=== PATIENT | female | born 1985 | race Caucasian/White ===

== ENCOUNTER 2020-09-29 11:27 | Inpatient (IN) ==
[2020-09-29] MEDS ORDERED: ONDANSETRON 4 MG/2 ML VIAL IV PRN ×2 (11:57→21:12)
[2020-09-29] MEDS ORDERED: BUTORPHANOL 2 MG/ML VIAL IV PRN (11:57)
[2020-09-29] MEDS ORDERED: MEPERIDINE 50 MG/1 ML VIAL IM PRN (11:57)
[2020-09-29] MEDS ORDERED: OXYTOCIN/LR 20 UNIT/1,000 ML BAG IV SCH (12:00)
[2020-09-29 12:17] LABS: Basophils % 0.3 % (0.0-0.8); Eosinophils # 0.1 10*3/uL (0.0-0.87); Eosinophils % 0.6 % (0.00-10.9); Hemoglobin 12.1 GM/DL (12.0-16.0); Immature Granulocytes % 1.8 %; Lymphocytes # 2.3 10*3/uL (1.4-4.0); Lymphocytes % 21.4 % (21.3-54.2); Mean Corpuscular HGB Conc 34.6 GM/DL (32-36); Mean Corpuscular Volume 89.7 FL (87-102); Mean Platelet Volume 8.8 FL (9.6-12.0); Monocytes % 6.6 % (1.7-12.7); Neutrophils % 69.3 % (38.7-73.9); Platelet Count 265 T/CUMM (130-400); Red Cell Distribution Width 13.2 % (9.3-17.3); White Blood Count 10.9 T/CUMM (4-12)
[2020-09-29] MEDS: LACTATED RINGERS 1,000 ML IV SCH ×2 (12:17→16:17)
[2020-09-29 12:31] LABS: PT Patient Result 10.4 SECS (9.8-11.9); Partial Thromboplastin Time 34.7 SECS (23.9-33.8)
[2020-09-29 12:34] LABS: Bilirubin,Direct 0.1 MG/DL (0.0-0.20); Uric Acid 5.3 MG/DL (2.6-6.0)
[2020-09-29 12:42] LABS: Alanine Aminotransferase 15 U/L (13-56); Albumin 2.9 G/DL (3.4-5.0); Alkaline Phosphatase 94 U/L (45-117); Aspartate Amino Transferase 14 U/L (0-37); Bilirubin,Total < 0.39 MG/DL (0.2-1.0); Blood Urea Nitrogen 9 MG/DL (7-18); Calcium 9.4 MG/DL (8.5-10.1); Carbon Dioxide 23 MMOL/L (21-32); Estimated Glom Filtration Rate 105 ML/MIN; Glucose 95 MG/DL (74-106); Osmolality,Calculated 266.2 MOS/KG (273-304); Sodium 134 MMOL/L (136-145); Total Protein 7.4 G/DL (6.4-8.3)
[2020-09-29] MEDS ORDERED: FAMOTIDINE 20 MG/2 ML VIAL IV ONE ×2 (12:49→19:07)
[2020-09-29] MEDS ORDERED: ePHEDrine 50 MG/ML VIAL IV PRN (12:49)
[2020-09-29] MEDS ORDERED: CITRIC ACID/SODIUM CITRATE 30 ML UDCUP PO ONE (12:49)
[2020-09-29] MEDS ORDERED: LACTATED RINGERS 1,000 ML IV ONE (12:49)
[2020-09-29] MEDS ORDERED: diphenhydrAMINE 50 MG/1 ML VIAL IV PRN ×2 (12:49)
[2020-09-29] MEDS ORDERED: PROMETHAZINE 25 MG/1 ML VIAL IM PRN (12:49)
[2020-09-29] MEDS ORDERED: hydrOXYzine HCL 25 MG/1 ML VIAL IM PRN (12:49)
[2020-09-29] MEDS ORDERED: NALOXONE 0.4 MG/ML VIAL IV PRN (12:49)
[2020-09-29] MEDS ORDERED: fentaNYL 2 MCG/ROPIV 0.2% EPID 100 ML EPIDURAL SCH (13:00)
[2020-09-29] MEDS ORDERED: CITRIC ACID/SODIUM CITRATE 30 ML UDCUP ONE (19:04)
[2020-09-29] MEDS ORDERED: miSOPROStoL 200 MCG TABLET ONE ×2 (20:27→20:30)
[2020-09-29] MEDS ORDERED: TRANEXAMIC ACID 1,000 MG/10 ML VIAL ONE (20:27)
[2020-09-29] MEDS ORDERED: METHYLERGONOVINE 0.2 MG/1 ML AMP ONE (20:29)
[2020-09-29] MEDS ORDERED: LIDOCAINE 1% 50 ML VIAL ONE (20:29)
[2020-09-29] MEDS ORDERED: CARBOPROST TROMETHAMINE 250 MCG/ML AMP IM ONE ×2 (20:30→20:58)
[2020-09-29] MEDS ORDERED: SODIUM CHLORIDE 0.9% 0 ML IV ONE (20:31)
[2020-09-29] MEDS ORDERED: LANOLIN 50% CREAM 0.3 OZ TUBE TOP PRN (21:12)
[2020-09-29] MEDS ORDERED: RHO(D) IMMUNE GLOBULIN 300 MCG SYRINGE IM ONE (21:12)
[2020-09-29] MEDS ORDERED: BISACODYL 10 MG SUPP RECTAL PRN (21:12)
[2020-09-29] MEDS ORDERED: oxyCODONE/ACETAMINOPHEN 5-325 MG TABLET PO PRN ×2 (21:12)
[2020-09-29] MEDS ORDERED: HYDROCORTISONE 2.5% RECTAL CREAM 30 GM TUBE TOP PRN (21:12)
[2020-09-29] MEDS ORDERED: WITCH HAZEL PADS 100/JAR TOP PRN (21:12)
[2020-09-29] MEDS ORDERED: BENZOCAINE 20%/MENTHOL 0.5% SPRAY 56 GM CAN TOP PRN (21:12)
[2020-09-29] MEDS ORDERED: DIPH/TET/ACEL PERT BOOSTER VACCINE 0.5 ML VIAL IM ONE (21:12)
[2020-09-29] MEDS ORDERED: MEASLES/MUMPS/RUBELLA VACCINE 0.5 ML VIAL SUBCUT ONE (21:12)
[2020-09-29] MEDS ORDERED: OXYTOCIN/LR 20 UNIT/1,000 ML BAG IV ONE (21:12)
[2020-09-29] MEDS ORDERED: ACETAMINOPHEN 325 MG TABLET PO PRN (21:12)
[2020-09-29 21:56] LABS: Cord Arterial Blood HCO3 20.5 MMOL/L; Cord Venous Blood HCO3 22.3 MMOL/L; Cord Venous Blood PO2 27.6
[2020-09-29] MEDS: IBUPROFEN 800 MG TABLET PO PRN (23:49)
[2020-09-30] MEDS ORDERED: ACETAMINOPHEN 500 MG TABLET PO PRN (00:54)
[2020-09-30] MEDS: IBUPROFEN 800 MG TABLET PO PRN ×3 (06:44→20:01)
[2020-09-30] MEDS: atenoloL 50 MG TABLET PO SCH (07:03)
[2020-09-30] MEDS: CITALOPRAM 20 MG TABLET PO SCH (07:03)
[2020-09-30 07:05] LABS: Basophils % 0.3 % (0.0-0.8); Eosinophils % 0.2 % (0.00-10.9); Hematocrit 28.2 VOL% (35.7-47.0); Immature Granulocytes % 0.9 %; Immature Granulocytes Absolute 0.11 #; Lymphocytes # 2.1 10*3/uL (1.4-4.0); Lymphocytes % 16.6 % (21.3-54.2); Mean Corpuscular HGB Conc 35.1 GM/DL (32-36); Mean Corpuscular Volume 88.4 FL (87-102); Monocytes % 6.5 % (1.7-12.7); Neutrophils % 75.5 % (38.7-73.9); Platelet Count 230 T/CUMM (130-400); Red Blood Count 3.19 MC/CUMM (3.8-5.5); Red Cell Distribution Width 12.9 % (9.3-17.3); White Blood Count 12.5 T/CUMM (4-12)
[2020-09-30 07:14] LABS: Hemoglobin 9.9 GM/DL (12.0-16.0)
[2020-09-30] MEDS: SUBOXONE SL SCH ×2 (07:31→18:03)
[2020-09-30] MEDS: DOCUSATE SODIUM 100 MG CAPSULE PO SCH ×2 (07:31→20:01)
[2020-10-01] MEDS: SUBOXONE SL SCH (07:25)
[2020-10-01] MEDS: CITALOPRAM 20 MG TABLET PO SCH (07:25)
[2020-10-01] MEDS: atenoloL 50 MG TABLET PO SCH (07:25)
[2020-10-01] MEDS: DOCUSATE SODIUM 100 MG CAPSULE PO SCH (07:25)
[2020-10-01] MEDS: IBUPROFEN 800 MG TABLET PO PRN (07:25)
[2020-10-01 07:45] VITALS: BP 118/80
[2020-10-01] MEDS ORDERED: INFLUENZA VIRUS VACCINE 0.5 ML SYRINGE IM ONE (09:21)
== END 2020-10-01 12:00 | disposition home or self-care (01) | DRG 806 ==
LOC: N.LDOUT 11:27 → N.LD 11:31 → N.OB 23:31
PROVIDERS: ADMIT Specialist; ATTEND Specialist